=== PATIENT | female | born 1995 | race Caucasian/White ===

== ENCOUNTER 2018-05-15 17:45 | Emergency (ER) | payer BC ==
--- NOTE | 2018-05-15 18:03 | EDM.PDOC ---
ED HPI GENERAL MEDICAL PROBLEM - General Chief Complaint: ENT Problem Stated Complaint: SICK Time Seen by Provider: 05/15/18 18:01 Source of Information: Reports: Patient History Limitations: Reports: No Limitations - History of Present Illness INITIAL COMMENTS - FREE TEXT/NARRATIVE: HISTORY AND PHYSICAL: History of present illness: Patient is a 23-year-old female here with complaint of sore throat, ear ache and body aches x 3 days. She denies fevers, chills, nausea, vomiting, diarrhea, abdominal pain, cough. Review of systems: As per history of present illness and below otherwise all systems reviewed and negative. Past medical history: As per history of present illness and as reviewed below otherwise noncontributory. Surgical history: As per history of present illness and as reviewed below otherwise noncontributory. Social history: No reported history of drug or alcohol abuse. Family history: As per history of present illness and as reviewed below otherwise noncontributory. Physical exam: General: Patient sitting comfortably in no acute distress and nontoxic appearing HEENT: Tonsils are absent. Slight erythema of the oropharynx. Atraumatic, normocephalic, pupils reactive, negative for conjunctival pallor or scleral icterus, mucous membranes moist, throat clear, neck supple, nontender, trachea midline. No meningeal signs. Lungs: Clear to auscultation, breath sounds equal bilaterally, chest nontender. Heart: S1S2, regular, negative for clicks, rubs, or overt murmur. Abdomen: Soft, nondistended, nontender. Negative for masses or hepatosplenomegaly. Negative for costovertebral tenderness. Pelvis: Stable nontender. Genitourinary: Deferred. Rectal: Deferred. Extremities: Atraumatic, negative for cords or calf pain. Neurovascular unremarkable. Neuro: Awake, alert, oriented. Cranial nerves II through XII unremarkable. Cerebellum unremarkable. Motor and sensory unremarkable throughout. Exam nonfocal. Notes: Diagnostics: Rapid strep, influenza Therapeutics: None Prescriptions: None Impression: Viral pharyngitis Plan: 1. Alternate motrin and tylenol as needed. 2. Follow up with primary care provider 3. Return to ED as needed as discussed Definitive disposition and diagnosis as appropriate pending reevaluation and review of above. throat Pain Score (Numeric/FACES): 7 - Related Data Allergies Allergy/AdvReac Type Severity Reaction Status Date / Time No Known Allergies Allergy Verified 05/15/18 17:56 Home Meds: Home Meds . [No Known Home Meds] 05/15/18 [History] Past Medical History HEENT History: Reports: None Cardiovascular History: Reports: None Respiratory History: Reports: None Gastrointestinal History: Reports: None Genitourinary History: Reports: None B[employer] History: Reports: None Musculoskeletal History: Reports: None Neurological History: Reports: None Psychiatric History: Reports: None Endocrine/Metabolic History: Reports: None Hematologic History: Reports: None Immunologic History: Reports: None Oncologic (Cancer) History: Reports: None Dermatologic History: Reports: None - Past Surgical History Head Surgeries/Procedures: Reports: None HEENT Surgical History: Reports: Adenoidectomy, Tonsillectomy Cardiovascular Surgical History: Reports: None Respiratory Surgical History: Reports: None GI Surgical History: Reports: Cholecystectomy Female Surgical History: Reports: None Endocrine Surgical History: Reports: None Neurological Surgical History: Reports: None Musculoskeletal Surgical History: Reports: None Oncologic Surgical History: Reports: None Dermatological Surgical History: Reports: None Social & Family History - Family History Family Medical History: Noncontributory - Tobacco Use Smoking Status *Q: Never Smoker Second Hand Smoke Exposure: No - Caffeine Use Caffeine Use: Reports: None - Recreational Drug Use Recreational Drug Use: No ED ROS ENT - Review of Systems Review Of Systems: ROS reveals no pertinent complaints other than HPI. ED EXAM, ENT - Physical Exam Exam: See Below (see dictation) Course - Vital Signs Last Recorded V/S: Last Vital Signs Temp 96.8 F 05/15/18 17:49 Pulse 116 H 05/15/18 17:49 Resp 18 05/15/18 17:49 BP 123/80 05/15/18 17:49 Pulse Ox 94 L 05/15/18 17:49 - Orders/Labs/Meds Orders: Active Orders 24 hr Category Date Time Status CULTURE STREP A CONFIRMATION [] Stat Lab 05/15/18 18:05 Results STREP SCRN A RAPID W CULT CONF [] Stat Lab 05/15/18 18:05 Results Departure - Departure Time of Disposition: 18:44 Disposition: Home, Self-Care 01 Condition: Good Clinical Impression: Viral pharyngitis - Discharge Information Referrals: PCP,Unknown [Primary Care Provider] - Forms: ED Department Discharge Additional Instructions: The following information is given to patients seen in the emergency department who are being discharged to home. This information is to outline your options for follow-up care. We provide all patients seen in our emergency department with a follow-up referral. The need for follow-up, as well as the timing and circumstances, are variable depending upon the specifics of your emergency department visit. If you don't have a primary care physician on staff, we will provide you with a referral. We always advise you to contact your personal physician following an emergency department visit to inform them of the circumstance of the visit and for follow-up with them and/or the need for any referrals to a consulting specialist. The emergency department will also refer you to a specialist when appropriate. This referral assures that you have the opportunity for follow-up care with a specialist. All of these measure are taken in an effort to provide you with optimal care, which includes your follow-up. Under all circumstances we always encourage you to contact your private physician who remains a resource for coordinating your care. When calling for follow-up care, please make the office aware that this follow-up is from your recent emergency room visit. If for any reason you are refused follow-up, please contact the [facility] Emergency Department at and asked to speak to the emergency department charge nurse. [facility] [address] [place] [id number] [place] [address] 1. Alternate motrin and tylenol as needed. 2. Follow up with primary care provider 3. Return to ED as needed as discussed - My Orders Last 24 Hours: My Active Orders 05/15/18 18:05 CULTURE STREP A CONFIRMATION [RM] Stat STREP SCRN A RAPID W CULT CONF [RM] Stat - Assessment/Plan Last 24 Hours: My Active Orders 05/15/18 18:05 CULTURE STREP A CONFIRMATION [RM] Stat STREP SCRN A RAPID W CULT CONF [RM] Stat
== END 2018-05-15 18:52 | disposition home or self-care (01) ==
LOC: MW.ED 17:45
DX: J02.9 Acute pharyngitis, unspecified (principal)
CPT/HCPCS: 87081; 87804; 87880-QW; 99283

== ENCOUNTER 2019-05-04 16:46 | Emergency (ER) | payer BC ==
--- NOTE | 2019-05-04 17:59 | EDM.PDOC ---
ED HPI GENERAL MEDICAL PROBLEM - General Chief Complaint: Lower Extremity Injury/Pain Stated Complaint: CRAMPS IN LEGS Time Seen by Provider: 05/04/19 17:43 Source of Information: Reports: Patient History Limitations: Reports: No Limitations - History of Present Illness INITIAL COMMENTS - FREE TEXT/NARRATIVE: HISTORY AND PHYSICAL: History of present illness: Patient is a 24-year-old female who presents to the ED today with concern of right calf cramping x1 week. Patient states the calf will cramp randomly and not at a specific time. Patient states that the area does feel warm when it is cramping and the pain radiates to the back of her right knee. Patient denies any trauma or injury to the leg or any other symptoms or concerns. Patient denies any health history. Patient denies fever, chills, chest pain, shortness of breath, or cough. Denies headache, neck stiff ness, change in vision, syncope, or near syncope. Denies nausea, vomiting, abdominal pain, diarrhea, constipation, or dysuria. Has not noted any blood in urine or stool. Patient has been eating and drinking appropriately. Review of systems: As per history of present illness and below otherwise all systems reviewed and negative. Past medical history: As per history of present illness and as reviewed below otherwise noncontributory. Surgical history: As per history of present illness and as reviewed below otherwise noncontributory. Social history: See social history for further information Family history: As per history of present illness and as reviewed below otherwise noncontributory. Physical exam: General: Patient is alert, oriented, and in no acute distress. Patient sitting comfortably on exam table. HEENT: Atraumatic, normocephalic, pupils equal and reactive bilaterally, negative for conjunctival pallor or scleral icterus, mucous membranes moist, TMs normal bilaterally, throat clear, neck supple, nontender, trachea midline. No drooling or trismus noted. No meningeal signs. No hot potato voice noted. Lungs: Clear to auscultation, breath sounds equal bilaterally, chest nontender. Heart: S1S2, regular rate and rhythm without overt murmur Abdomen: Soft, nondistended, nontender. Negative for masses or hepatosplenomegaly. Negative for costovertebral tenderness. Pelvis: Stable nontender. Genitourinary: Deferred. Rectal: Deferred. Skin: Intact, warm, dry. No lesions or rashes noted. Extremities: Atraumatic, negative for cords or calf pain. Neurovascular unremarkable. DP/Pt pulses intact bilaterally with capillary refill less than 2 seconds. Neuro: Awake, alert, oriented. Cranial nerves II through XII unremarkable. Cerebellum unremarkable. Motor and sensory unremarkable throughout. Exam nonfocal. Notes: Discussed importance for follow-up with a primary care provider. Voices understanding and is agreeable to plan of care. Denies any further questions or concerns at this time. Diagnostics: CBC, CMP, CK, Lower extremity US Therapeutics: None Prescription: None Impression: Calf pain, right Plan: 1. Rest, ice, elevate the affected extremity. You can apply ice and or heat 15 minutes on, 15 minutes off. 2. Tylenol and/or Ibuprofen as directed for pain management or discomfort. 3. Follow up with the primary care provider as discussed. Return to the ED as needed and as discussed. Definitive disposition and diagnosis as appropriate pending reevaluation and review of above. Bilateral Leg Cramps Pain Score (Numeric/FACES): 5 - Related Data Allergies Allergy/AdvReac Type Severity Reaction Status Date / Time No Known Allergies Allergy Verified 05/04/19 19:17 Home Meds: Home Meds . [No Known Home Meds] 05/15/18 [History] Past Medical History HEENT History: Reports: None Cardiovascular History: Reports: None Respiratory History: Reports: None Gastrointestinal History: Reports: None Genitourinary History: Reports: None LEATHER [employer]AYER History: Reports: None Musculoskeletal History: Reports: None Neurological History: Reports: None Psychiatric History: Reports: None Endocrine/Metabolic History: Reports: None Hematologic History: Reports: None Immunologic History: Reports: None Oncologic (Cancer) History: Reports: None Dermatologic History: Reports: None - Past Surgical History Head Surgeries/Procedures: Reports: None HEENT Surgical History: Reports: Adenoidectomy, Tonsillectomy Cardiovascular Surgical History: Reports: None Respiratory Surgical History: Reports: None GI Surgical History: Reports: Cholecystectomy Female Surgical History: Reports: None Endocrine Surgical History: Reports: None Neurological Surgical History: Reports: None Musculoskeletal Surgical History: Reports: None Oncologic Surgical History: Reports: None Dermatological Surgical History: Reports: None Social & Family History - Family History Family Medical History: Noncontributory - Caffeine Use Caffeine Use: Reports: None Review of Systems - Review of Systems Review Of Systems: Comprehensive ROS is negative, except as noted in HPI. ED EXAM, GENERAL - Physical Exam Exam: See Below (see dictation) Course - Vital Signs Last Recorded V/S: Last Vital Signs Temp 97.1 F 05/04/19 17:30 Pulse 90 05/04/19 17:30 Resp 16 05/04/19 17:30 BP 120/70 05/04/19 17:30 Pulse Ox 98 05/04/19 17:30 - Orders/Labs/Meds Labs: Laboratory Tests 05/04/19 05/04/19 Range/Units 18:05 18:05 WBC 5.55 (4.0-11.0) K/uL RBC 4.39 (4.30-5.90) M/uL Hgb 14.3 (12.0-16.0) g/dL Hct 40.5 (36.0-46.0) % MCV 92.3 (80.0-98.0) fL MCH 32.6 H (27.0-32.0) pg MCHC 35.3 (31.0-37.0) g/dL RDW Std Deviation 42.8 (28.0-62.0) fl RDW Coeff of Lili 13 (11.0-15.0) % Plt Count 233 (150-400) K/uL MPV 10.50 (7.40-12.00) fL Neut % (Auto) 61.1 (48.0-80.0) % Lymph % (Auto) 32.4 (16.0-40.0) % [place] % (Auto) 5.2 (0.0-15.0) % Eos % (Auto) 1.1 (0.0-7.0) % Baso % (Auto) 0.2 (0.0-1.5) % Neut # (Auto) 3.4 (1.4-5.7) K/uL Lymph # (Auto) 1.8 (0.6-2.4) K/uL [place] # (Auto) 0.3 (0.0-0.8) K/uL Eos # (Auto) 0.1 (0.0-0.7) K/uL Baso # (Auto) 0.0 (0.0-0.1) K/uL Nucleated RBC % 0.0 /100WBC Nucleated RBCs # 0 K/uL Sodium 140 (136-145) mmol/L Potassium 4.2 (3.5-5.1) mmol/L Chloride 103 (98-107) mmol/L Carbon Dioxide 24.6 (21.0-32.0) mmol/L BUN 11 (7.0-18.0) mg/dL Creatinine 0.7 (0.6-1.0) mg/dL Est Cr Clr Drug Dosing TNP Estimated GFR (MDRD) > 60.0 ml/min Glucose 88 (74-106) mg/dL Calcium 9.8 (8.5-10.1) mg/dL Total Bilirubin 0.4 (0.2-1.0) mg/dL AST 18 (15-37) IU/L ALT 26 (14-63) IU/L Alkaline Phosphatase 50 (46-116) U/L Creatine Kinase 58 (26-308) U/L Total Protein 8.8 H (6.4-8.2) g/dL Albumin 5.0 (3.4-5.0) g/dL Globulin 3.8 (2.6-4.0) g/dL Albumin/Globulin Ratio 1.3 (0.9-1.6) Departure - Departure Time of Disposition: 19:56 Disposition: Home, Self-Care 01 Clinical Impression: Calf pain Qualifiers: Laterality: right Qualified Code(s): M79.661 - Pain in right lower leg - Discharge Information Referrals: Zach Raygoza MD [Primary Care Provider] - Forms: ED Department Discharge Additional Instructions: The following information is given to patients seen in the emergency department who are being discharged to home. This information is to outline your options for follow-up care. We provide all patients seen in our emergency department with a follow-up referral. The need for follow-up, as well as the timing and circumstances, are variable depending upon the specifics of your emergency department visit. If you don't have a primary care physician on staff, we will provide you with a referral. We always advise you to contact your personal physician following an emergency department visit to inform them of the circumstance of the visit and for follow-up with them and/or the need for any referrals to a consulting specialist. The emergency department will also refer you to a specialist when appropriate. This referral assures that you have the opportunity for follow-up care with a specialist. All of these measure are taken in an effort to provide you with optimal care, which includes your follow-up. Under all circumstances we always encourage you to contact your private physician who remains a resource for coordinating your care. When calling for follow-up care, please make the office aware that this follow-up is from your recent emergency room visit. If for any reason you are refused follow-up, please contact the [facility] Emergency Department at and asked to speak to the emergency department charge nurse. [facility] [address] [place] [id number] [facility] [address] [place] [id number] 1. Rest, ice, elevate the affected extremity. You can apply ice and or heat 15 minutes on, 15 minutes off. 2. Tylenol and/or Ibuprofen as directed for pain management or discomfort. 3. Follow up with the primary care provider as discussed. Return to the ED as needed and as discussed. Sepsis Event Note - Focused Exam Vital Signs: Vital Signs Temp Pulse Resp BP Pulse Ox 05/04/19 17:30 97.1 F 90 16 120/70 98 Date Exam was Performed: 05/04/19 Time Exam was Performed: 19:56
[2019-05-04 18:31] LABS: BLOOD UREA NITROGEN,BUN 11 mg/dL (7.0-18.0); CARBON DIOXIDE,CO2 24.6 mmol/L (21.0-32.0); CHLORIDE,CL 103 mmol/L (98-107); GLUCOSE RANDOM 88 mg/dL (74-106); POTASSIUM,K 4.2 mmol/L (3.5-5.1); SODIUM,NA 140 mmol/L (136-145)
--- NOTE | 2019-05-04 19:51 | US ---
Right lower extremity deep venous ultrasound: Duplex and color Doppler evaluation was obtained of the right common femoral, superficial femoral, popliteal, posterior tibial, peroneal and anterior tibial veins. Normal augmentation and compression is seen. Impression: 1. No evidence of deep venous thrombosis within the right lower extremity. Diagnostic code #1
== END 2019-05-04 20:00 | disposition home or self-care (01) ==
LOC: MW.ED 16:46
DX: M79.661 Pain in right lower leg (principal)
CPT/HCPCS: 36415; 80053; 82550; 85025; 93971-26-RT; 93971-RT; 99283; 99284-25

== ENCOUNTER 2021-05-24 10:18 | Emergency (ER) | payer BC ==
[2021-05-24] MEDS ORDERED: Ketorolac 60 MG/2 ML SDV IM ONE (11:20)
[2021-05-24] MEDS ORDERED: Acetaminophen/oxyCODONE 325-5 MG Tab PO ONE (11:20)
== END 2021-05-24 12:14 | disposition home or self-care (01) ==
LOC: MW.ED 10:18
DX: S62.015A Nondisplaced fracture of distal pole of navicular [scaphoid] bone of left wrist, initial encounter for closed fracture (principal); Z88.8 Allergy status to other drugs, medicaments and biological substances; W10.8XXA Fall (on) (from) other stairs and steps, initial encounter
CPT/HCPCS: 29125; 73080; 73110; 96372; 99283; A9270; J1885

== ENCOUNTER 2022-05-11 12:56 | Emergency (ER) | payer BC ==
[2022-05-11] MEDS ORDERED: Sodium Chloride 0.9% 2.5 ML Syringe FLUSH PRN (13:21)
[2022-05-11] MEDS ORDERED: Sodium Chloride 0.9% 10 ML Syringe FLUSH PRN (13:21)
[2022-05-11] MEDS ORDERED: LORazepam 2 MG/ML SDV IVPUSH ONE (13:22)
[2022-05-11 14:20] LABS: BLOOD UREA NITROGEN,BUN 8 mg/dL (7.0-18.0); CARBON DIOXIDE,CO2 24.1 mmol/L (21.0-32.0); CHLORIDE,CL 104 mmol/L (98-107); GLUCOSE RANDOM 184 mg/dL (74-106); POTASSIUM,K 3.5 mmol/L (3.5-5.1); SODIUM,NA 139 mmol/L (136-145)
[2022-05-11 14:25] LABS: ESTIMATED GFR 105 mL/min (>60)
[2022-05-11] MEDS ORDERED: Lactated Ringers 1,000 ML IV ONE (14:33)
== END 2022-05-11 15:36 | disposition home or self-care (01) ==
LOC: MW.ED 12:56
DX: O99.891 Other specified diseases and conditions complicating pregnancy (principal); R00.2 Palpitations; F41.9 Anxiety disorder, unspecified; R06.02 Shortness of breath; O9A.219 Injury, poisoning and certain other consequences of external causes complicating pregnancy, unspecified trimester; T43.215A Adverse effect of selective serotonin and norepinephrine reuptake inhibitors, initial encounter; R00.0 Tachycardia, unspecified; Z88.8 Allergy status to other drugs, medicaments and biological substances
CPT/HCPCS: 36415; 71046; 80053; 83735; 84484; 84703; 85025; 85379; 93005; 96361; 96374; 99285; J2060; J3490; J7120

== ENCOUNTER 2022-05-31 04:48 | Emergency (ER) | payer BC ==
[2022-05-31] MEDS ORDERED: Alum Hydro/Mag Hydro/Simeth XS 15 ML, Lidocaine 2% 5 ML PO ONE ×2 (05:12)
[2022-05-31] MEDS ORDERED: Famotidine 20 MG Tab PO ONE (05:12)
[2022-05-31] MEDS ORDERED: LORazepam 0.5 MG Tab PO ONE (06:12)
== END 2022-05-31 07:17 | disposition home or self-care (01) ==
LOC: MW.ED 04:48
DX: O99.891 Other specified diseases and conditions complicating pregnancy (principal); R10.13 Epigastric pain; R10.10 Upper abdominal pain, unspecified; Z88.8 Allergy status to other drugs, medicaments and biological substances; Z3A.01 Less than 8 weeks gestation of pregnancy
CPT/HCPCS: 99283; A9270

== ENCOUNTER 2022-05-31 13:10 | Emergency (ER) | payer BC ==
[2022-05-31] MEDS ORDERED: Sodium Chloride 0.9% 1,000 ML IV ONE (13:26)
[2022-05-31] MEDS ORDERED: Ondansetron 4 MG/2 ML SDV IVPUSH ONE (13:26)
[2022-05-31] MEDS ORDERED: Famotidine 20 MG/2 ML SDV IVPUSH ONE (13:26)
[2022-05-31] MEDS ORDERED: Alum Hydro/Mag Hydro/Simeth XS 15 ML, Lidocaine 2% 5 ML PO ONE ×2 (13:28)
[2022-05-31 14:03] LABS: CARBON DIOXIDE,CO2 24.6 mmol/L (21.0-32.0); POTASSIUM,K 3.6 mmol/L (3.5-5.1)
== END 2022-05-31 15:51 | disposition home or self-care (01) ==
LOC: MW.ED 13:10
DX: O99.891 Other specified diseases and conditions complicating pregnancy (principal); R10.84 Generalized abdominal pain; Z90.49 Acquired absence of other specified parts of digestive tract; Z88.8 Allergy status to other drugs, medicaments and biological substances; Z3A.01 Less than 8 weeks gestation of pregnancy
CPT/HCPCS: 36415; 76801; 80053; 81003; 82009; 83605; 83690; 83735; 84702; 85025; 96361; 96374; 96375; 99284; A9270; J2405; J3490; J7030; 99283

== ENCOUNTER 2022-12-22 14:11 | Inpatient (IN) | payer BC ==
[2022-12-22] MEDS ORDERED: Betamethasone Acetate/Betamethasone Sod Phosphate 6 MG/1 ML MDV IM ONE (14:26)
[2022-12-22 15:25] LABS: BASOPHILS PERCENT AUTO 0.1 % (0.0-1.5); EOSINOPHILS PERCENT AUTO 0.5 % (0.0-7.0); HEMATOCRIT 35.5 % (36.0-46.0); HEMOGLOBIN 11.9 g/dL (12.0-16.0); LYMPHOCYTES ABSOLUTE AUTO 1.1 K/uL (0.6-2.4); MEAN CORPUSCULAR HEMOGLOBIN 31.7 pg (27.0-32.0); MEAN CORPUSCULAR HGB CONC 33.5 g/dL (31.0-37.0); MEAN CORPUSCULAR VOLUME 94.7 fL (80.0-98.0); MONOCYTES ABSOLUTE AUTO 0.4 K/uL (0.0-0.8); MONOCYTES PERCENT AUTO 5.7 % (0.0-15.0); NEUTROPHILS PERCENT AUTO 79.7 % (48.0-80.0); NRBC ABSOLUTE 0 K/uL; PLATELET COUNT,PLT 199 K/uL (150-400); RED BLOOD CELL COUNT 3.75 M/uL (4.30-5.90); WHITE BLOOD CELL COUNT,WBC 7.55 K/uL (4.0-11.0)
[2022-12-22 15:51] LABS: A/G RATIO 0.6 (0.9-1.6); ALBUMIN 2.6 g/dL (3.4-5.0); BILIRUBIN TOTAL 0.5 mg/dL (0.2-1.0); CALCIUM 9.3 mg/dL (8.5-10.1); CARBON DIOXIDE,CO2 22.4 mmol/L (21.0-32.0); CREATININE 0.6 mg/dL (0.6-1.0); EST CRCL DRUG DOSING (CG) 118.57 mL/min; POTASSIUM,K 3.9 mmol/L (3.5-5.1); URIC ACID 5.4 mg/dL (2.6-7.2)
[2022-12-22 17:09] LABS: CREATININE,URINE RAND 43.8 mg/dL; PROTEIN CREATININE RATIO,URINE 0.2; PROTEIN,URINE RANDOM 10.1 mg/dL (<11.9)
[2022-12-22] MEDS ORDERED: Labetalol 100 MG Tab PO ONE (17:26)
[2022-12-23 06:32] LABS: HEMATOCRIT 33.5 % (36.0-46.0); HEMOGLOBIN 11.2 g/dL (12.0-16.0); LYMPHOCYTES ABSOLUTE AUTO 0.9 K/uL (0.6-2.4); LYMPHOCYTES PERCENT AUTO 8.5 % (16.0-40.0); MEAN CORPUSCULAR HEMOGLOBIN 31.7 pg (27.0-32.0); MEAN CORPUSCULAR HGB CONC 33.4 g/dL (31.0-37.0); MEAN CORPUSCULAR VOLUME 94.9 fL (80.0-98.0); MONOCYTES ABSOLUTE AUTO 0.6 K/uL (0.0-0.8); MONOCYTES PERCENT AUTO 5.3 % (0.0-15.0); NEUTROPHILS ABSOLUTE AUTO 9.1 K/uL (1.4-5.7); NEUTROPHILS PERCENT AUTO 86.2 % (48.0-80.0); NRBC ABSOLUTE 0 K/uL; PLATELET COUNT,PLT 194 K/uL (150-400); RED BLOOD CELL COUNT 3.53 M/uL (4.30-5.90); WHITE BLOOD CELL COUNT,WBC 10.52 K/uL (4.0-11.0)
[2022-12-23 06:54] LABS: A/G RATIO 0.6 (0.9-1.6); ALBUMIN 2.4 g/dL (3.4-5.0); BILIRUBIN TOTAL 0.3 mg/dL (0.2-1.0); CALCIUM 8.2 mg/dL (8.5-10.1); CARBON DIOXIDE,CO2 19.1 mmol/L (21.0-32.0); CREATININE 0.7 mg/dL (0.6-1.0); EST CRCL DRUG DOSING (CG) 101.63 mL/min; POTASSIUM,K 4.1 mmol/L (3.5-5.1); PROTEIN TOTAL,TP 6.7 g/dL (6.4-8.2); URIC ACID 5.5 mg/dL (2.6-7.2)
[2022-12-23] MEDS ORDERED: Labetalol 100 MG Tab PO SCH ×2 (08:20→09:00)
[2022-12-23] MEDS ORDERED: Betamethasone Acetate/Betamethasone Sod Phosphate 6 MG/1 ML MDV IM ONE (15:00)
[2022-12-24 07:08] LABS: HEMATOCRIT 33.4 % (36.0-46.0); HEMOGLOBIN 11.1 g/dL (12.0-16.0); MEAN CORPUSCULAR HGB CONC 33.2 g/dL (31.0-37.0); MEAN CORPUSCULAR VOLUME 96.3 fL (80.0-98.0); MEAN PLATELET VOLUME 11.9 fL (7.40-12.00); RED BLOOD CELL COUNT 3.47 M/uL (4.30-5.90); WHITE BLOOD CELL COUNT,WBC 9.9 K/uL (4.0-11.0)
[2022-12-24 07:28] LABS: A/G RATIO 0.6 (0.9-1.6); ALBUMIN 2.3 g/dL (3.4-5.0); BILIRUBIN TOTAL 0.2 mg/dL (0.2-1.0); CALCIUM 8.6 mg/dL (8.5-10.1); CARBON DIOXIDE,CO2 20.8 mmol/L (21.0-32.0); CREATININE 0.7 mg/dL (0.6-1.0); EST CRCL DRUG DOSING (CG) 101.63 mL/min; POTASSIUM,K 4.4 mmol/L (3.5-5.1); PROTEIN TOTAL,TP 6.4 g/dL (6.4-8.2); URIC ACID 5.1 mg/dL (2.6-7.2)
[2022-12-24 08:57] LABS: CREATININE,URINE RAND 86.3 mg/dL; PROTEIN CREATININE RATIO,URINE 0.6; PROTEIN,URINE RANDOM 49.3 mg/dL (<11.9)
[2022-12-25] MEDS ORDERED: Labetalol 100 MG/20 ML MDV ONE (06:57)
[2022-12-25 07:04] LABS: HEMATOCRIT 33.3 % (36.0-46.0); HEMOGLOBIN 11.1 g/dL (12.0-16.0); MEAN CORPUSCULAR HEMOGLOBIN 32.1 pg (27.0-32.0); MEAN CORPUSCULAR HGB CONC 33.3 g/dL (31.0-37.0); MEAN CORPUSCULAR VOLUME 96.2 fL (80.0-98.0); MEAN PLATELET VOLUME 11.9 fL (7.40-12.00); NRBC PERCENT 0.9 /100WBC; RED BLOOD CELL COUNT 3.46 M/uL (4.30-5.90); WHITE BLOOD CELL COUNT,WBC 8.29 K/uL (4.0-11.0)
[2022-12-25 07:24] LABS: A/G RATIO 0.6 (0.9-1.6); ALBUMIN 2.2 g/dL (3.4-5.0); BILIRUBIN TOTAL 0.2 mg/dL (0.2-1.0); CALCIUM 7.7 mg/dL (8.5-10.1); CARBON DIOXIDE,CO2 21.1 mmol/L (21.0-32.0); CREATININE 0.6 mg/dL (0.6-1.0); EST CRCL DRUG DOSING (CG) 118.57 mL/min; PROTEIN TOTAL,TP 6.2 g/dL (6.4-8.2); URIC ACID 5.7 mg/dL (2.6-7.2)
[2022-12-25 07:28] LABS: CREATININE,URINE RAND 86.7 mg/dL; PROTEIN,URINE RANDOM 87.8 mg/dL (<11.9)
[2022-12-26 06:51] LABS: HEMATOCRIT 34.4 % (36.0-46.0); HEMOGLOBIN 11.2 g/dL (12.0-16.0); MEAN CORPUSCULAR HEMOGLOBIN 31.3 pg (27.0-32.0); MEAN CORPUSCULAR HGB CONC 32.6 g/dL (31.0-37.0); MEAN CORPUSCULAR VOLUME 96.1 fL (80.0-98.0); MEAN PLATELET VOLUME 12.4 fL (7.40-12.00); RED BLOOD CELL COUNT 3.58 M/uL (4.30-5.90); WHITE BLOOD CELL COUNT,WBC 8.42 K/uL (4.0-11.0)
[2022-12-26 07:20] LABS: A/G RATIO 0.6 (0.9-1.6); ALBUMIN 2.2 g/dL (3.4-5.0); BILIRUBIN TOTAL 0.2 mg/dL (0.2-1.0); CALCIUM 7.9 mg/dL (8.5-10.1); CARBON DIOXIDE,CO2 23.4 mmol/L (21.0-32.0); CREATININE 0.6 mg/dL (0.6-1.0); EST CRCL DRUG DOSING (CG) 118.57 mL/min; POTASSIUM,K 4.4 mmol/L (3.5-5.1); URIC ACID 5.2 mg/dL (2.6-7.2)
[2022-12-26] MEDS ORDERED: Phenylephrine HCl 0.5 MG/5 ML AMP IVPUSH PRN (14:55)
[2022-12-26] MEDS ORDERED: ePHEDrine 50 MG/ML SDV IVPUSH PRN ×4 (14:55→23:36)
[2022-12-26] MEDS ORDERED: Ropivacaine HCl/PF 400 MG in Premix Bag 1 BAG EPIDUR SCH ×2 (15:00→23:45)
[2022-12-26] MEDS ORDERED: Sodium Chloride 0.9% 10 ML Syringe FLUSH PRN ×3 (22:28→23:08)
[2022-12-26] MEDS ORDERED: Sodium Chloride 0.9% 20 ML SDV IV PRN ×3 (22:28→23:08)
[2022-12-26] MEDS ORDERED: Sodium Chloride 0.9% 2.5 ML Syringe FLUSH PRN ×3 (22:28→23:08)
[2022-12-26] MEDS ORDERED: Labetalol 100 MG/20 ML MDV IVPUSH PRN (22:28)
[2022-12-26] MEDS ORDERED: Terbutaline 1 MG/ML SDV SUBCUT PRN (22:57)
[2022-12-26] MEDS ORDERED: Misoprostol 25 MCG (1/4 of 100 MCG) Tab VAG PRN (22:57)
[2022-12-26] MEDS ORDERED: Oxytocin/0.9 % Sodium Chloride 30 UNIT/500 ML BAG IV SCH ×2 (23:00→23:15)
[2022-12-26] MEDS ORDERED: Water For Irrigation,Sterile 1,000 ML Container IRR PRN (23:02)
[2022-12-26] MEDS ORDERED: Methylergonovine 0.2 MG/1 ML Amp IM PRN (23:02)
[2022-12-26] MEDS ORDERED: Tranexamic Acid IN NACL,ISO-OS 1,000 MG in Premix Bag 1 BAG IV PRN ×2 (23:02)
[2022-12-26] MEDS ORDERED: Carboprost Tromethamine 250 MCG/1 mL Vial IM PRN (23:02)
[2022-12-26] MEDS ORDERED: Lidocaine 1% 50 ML MDV INJECT PRN (23:02)
[2022-12-26] MEDS ORDERED: Ondansetron 4 MG/2 ML SDV IVPUSH PRN (23:02)
[2022-12-26] MEDS ORDERED: Misoprostol 200 MCG Tab PO PRN (23:02)
[2022-12-26] MEDS ORDERED: Calcium Gluconate 10% 1 GM/10 ML SDV IV PRN (23:08)
[2022-12-26] MEDS ORDERED: Magnesium Sulfate/Water 4 GM in Premix Bag 1 BAG IV ONE (23:08)
[2022-12-26] MEDS ORDERED: Lactated Ringers 1,000 ML IV SCH (23:15)
[2022-12-27] MEDS: Magnesium Sulfate/Water 20 GM/500 ML BAG IV SCH ×2 (00:02→10:27)
[2022-12-27] MEDS: Misoprostol 25 MCG (1/4 of 100 MCG) Tab VAG PRN ×3 (04:02→12:44)
[2022-12-27 04:43] LABS: HEMATOCRIT 34.8 % (36.0-46.0); HEMOGLOBIN 11.5 g/dL (12.0-16.0); MEAN CORPUSCULAR HEMOGLOBIN 31.5 pg (27.0-32.0); MEAN CORPUSCULAR VOLUME 95.3 fL (80.0-98.0); MEAN PLATELET VOLUME 12.2 fL (7.40-12.00); NRBC PERCENT 0.2 /100WBC; RED BLOOD CELL COUNT 3.65 M/uL (4.30-5.90); WHITE BLOOD CELL COUNT,WBC 8.82 K/uL (4.0-11.0)
[2022-12-27 04:44] LABS: A/G RATIO 0.6 (0.9-1.6); ALBUMIN 2.3 g/dL (3.4-5.0); BILIRUBIN TOTAL 0.2 mg/dL (0.2-1.0); CALCIUM 8.1 mg/dL (8.5-10.1); CREATININE 0.7 mg/dL (0.6-1.0); EST CRCL DRUG DOSING (CG) 101.63 mL/min; POTASSIUM,K 4.3 mmol/L (3.5-5.1); PROTEIN TOTAL,TP 6.2 g/dL (6.4-8.2); URIC ACID 4.9 mg/dL (2.6-7.2)
[2022-12-28] MEDS ORDERED: Dexmedetomidine 200 MCG/2 ML SDV ONE
[2022-12-28] MEDS: Phenylephrine HCl 0.5 MG/5 ML AMP IVPUSH PRN ×2 (00:17→00:29)
[2022-12-28 04:50] LABS: HEMATOCRIT 33.6 % (36.0-46.0); HEMOGLOBIN 10.9 g/dL (12.0-16.0); MEAN CORPUSCULAR HEMOGLOBIN 31.1 pg (27.0-32.0); MEAN CORPUSCULAR HGB CONC 32.4 g/dL (31.0-37.0); MEAN CORPUSCULAR VOLUME 95.7 fL (80.0-98.0); MEAN PLATELET VOLUME 11.6 fL (7.40-12.00); RED BLOOD CELL COUNT 3.51 M/uL (4.30-5.90); WHITE BLOOD CELL COUNT,WBC 9.22 K/uL (4.0-11.0)
[2022-12-28 05:15] LABS: A/G RATIO 0.5 (0.9-1.6); ALBUMIN 2.1 g/dL (3.4-5.0); BILIRUBIN TOTAL 0.5 mg/dL (0.2-1.0); CALCIUM 6.6 mg/dL (8.5-10.1); CARBON DIOXIDE,CO2 23.6 mmol/L (21.0-32.0); CREATININE 0.7 mg/dL (0.6-1.0); EST CRCL DRUG DOSING (CG) 101.63 mL/min; POTASSIUM,K 4.4 mmol/L (3.5-5.1); URIC ACID 5.9 mg/dL (2.6-7.2)
[2022-12-28] MEDS ORDERED: oxyCODONE 5 MG Tab PO PRN (07:59)
[2022-12-28] MEDS ORDERED: Witch Hazel Medicated Pads 40/Jar TOP PRN (07:59)
[2022-12-28] MEDS ORDERED: Docusate Sodium 100 MG Cap PO PRN (07:59)
[2022-12-28] MEDS ORDERED: Acetaminophen 500 MG Tab PO PRN (07:59)
[2022-12-28] MEDS ORDERED: Ibuprofen 400 MG Tab PO PRN (07:59)
[2022-12-28] MEDS ORDERED: Lanolin 100% Cream 7 GM Tube TOP PRN (07:59)
[2022-12-28] MEDS ORDERED: Bisacodyl 10 MG Supp RECTAL PRN (07:59)
[2022-12-28] MEDS ORDERED: Benzocaine/Menthol 20%-0.5% Spray 78 GM Cannister TOP PRN (07:59)
[2022-12-28] MEDS ORDERED: Calcium Gluconate 10% 1 GM/10 ML SDV IV PRN (08:01)
[2022-12-28] MEDS ORDERED: Sodium Chloride 0.9% 20 ML SDV IV PRN (08:01)
[2022-12-28] MEDS ORDERED: Sodium Chloride 0.9% 10 ML Syringe FLUSH PRN (08:01)
[2022-12-28] MEDS ORDERED: Sodium Chloride 0.9% 2.5 ML Syringe FLUSH PRN (08:01)
[2022-12-28] MEDS ORDERED: Magnesium Sulfate/Water 20 GM/500 ML BAG IV SCH (08:15)
[2022-12-28 08:27] LABS: PH,UMBILICAL ARTERIAL 7.207 (7.18-7.38); PH,UMBILICAL VENOUS 7.283 (7.25-7.45)
[2022-12-28] MEDS: Acetaminophen 500 MG Tab PO PRN ×2 (08:27→23:57)
[2022-12-28] MEDS: Ibuprofen 800 MG Tab PO PRN (15:40)
[2022-12-29 06:13] LABS: HEMATOCRIT 30.7 % (36.0-46.0); HEMOGLOBIN 10.1 g/dL (12.0-16.0)
[2022-12-29 08:35] LABS: HEMOGLOBIN 10.5 g/dL (12.0-16.0); MEAN CORPUSCULAR HEMOGLOBIN 31.7 pg (27.0-32.0); MEAN CORPUSCULAR HGB CONC 32.8 g/dL (31.0-37.0); MEAN CORPUSCULAR VOLUME 96.7 fL (80.0-98.0); MEAN PLATELET VOLUME 10.9 fL (7.40-12.00); RED BLOOD CELL COUNT 3.31 M/uL (4.30-5.90); WHITE BLOOD CELL COUNT,WBC 8.42 K/uL (4.0-11.0)
[2022-12-29 09:12] LABS: A/G RATIO 0.5 (0.9-1.6); ALBUMIN 1.9 g/dL (3.4-5.0); BILIRUBIN TOTAL 0.3 mg/dL (0.2-1.0); CALCIUM 7.1 mg/dL (8.5-10.1); CARBON DIOXIDE,CO2 22.4 mmol/L (21.0-32.0); CREATININE 0.6 mg/dL (0.6-1.0); EST CRCL DRUG DOSING (CG) 118.57 mL/min; POTASSIUM,K 3.9 mmol/L (3.5-5.1); PROTEIN TOTAL,TP 5.6 g/dL (6.4-8.2)
[2022-12-29] MEDS: Labetalol 100 MG Tab PO SCH ×2 (09:30→21:01)
[2022-12-29] MEDS: Ibuprofen 800 MG Tab PO PRN (12:06)
[2022-12-30] MEDS: Ibuprofen 800 MG Tab PO PRN (03:33)
[2022-12-30] MEDS: Labetalol 100 MG Tab PO SCH (08:35)
== END 2022-12-30 09:35 | disposition home or self-care (01) | DRG 560 ==
LOC: MW.OB 14:11 → MW.OBCHECK 14:11 → MW.OB 18:27 → MW.OBCHECK 18:27 → OBSVTOIN 12-28 07:14 → MW.OB 12-28 11:03
PROVIDERS: ADMIT Obstetrics & Gynecology; ATTEND Obstetrics & Gynecology
PROC: 10E0XZZ Delivery of Products of Conception, External Approach (ICD-10-PCS; principal; 2022-12-28)
PROC: 3E0R3BZ Introduction of Anesthetic Agent into Spinal Canal, Percutaneous Approach (ICD-10-PCS; 2022-12-28)
PROC: 00HU33Z Insertion of Infusion Device into Spinal Canal, Percutaneous Approach (ICD-10-PCS; 2022-12-28)
PROC: 0KQM0ZZ Repair Perineum Muscle, Open Approach (ICD-10-PCS; 2022-12-28)
PROC: 3E0P7VZ Introduction of Hormone into Female Reproductive, Via Natural or Artificial Opening (ICD-10-PCS; 2022-12-28)
PROC: 3E033VJ Introduction of Other Hormone into Peripheral Vein, Percutaneous Approach (ICD-10-PCS; 2022-12-28)
PROC: 4A1HXCZ Monitoring of Products of Conception, Cardiac Rate, External Approach (ICD-10-PCS; 2022-12-28)
DX: O14.14 Severe pre-eclampsia complicating childbirth (principal); Z37.0 Single live birth; O13.4 Gestational [pregnancy-induced] hypertension without significant proteinuria, complicating childbirth; Z3A.35 35 weeks gestation of pregnancy; O70.1 Second degree perineal laceration during delivery
CPT/HCPCS: 01967; 36415; 51702; 59025; 59409; 76815-26; 76816; 76819; 76819-26; 80053; 82570; 82803; 83735; 84156; 84550; 85014; 85018; 85025; 85027; 86592; 86850; 86900; 86901; A9270-GY; J0702; J2371; J2590; J3475; J3490; J7120